=== PATIENT | female | born 1990 | race African-American/Black ===

== ENCOUNTER 2024-02-05 02:37 | Inpatient (IN) | payer MEDICAID ==
[~2024-02-05] VITALS: Ht 177.8 cm; Wt 64.0 kg
[2024-02-05 02:55] VITALS: O2SAT 98
[2024-02-05 03:10] LABS: BASOPHILS % (AUTO) 0.5 % (0.0-2.0); EOSINOPHILS % (AUTO) 5.4 % (1.0-6.0); HEMATOCRIT 38.6 % (36-46); HEMOGLOBIN 12.5 g/dL (12.0-16.0); LYMPHOCYTES # (AUTO) 1.3 K/uL (1.0-4.8); MEAN CORPUSCULAR HEMOGLOBIN 30.3 pg (26.0-34.0); MEAN CORPUSCULAR HGB CONC 32.4 G/dL (31.0-37.0); MEAN CORPUSCULAR VOLUME 93 fL (80-100); MONOCYTES # (AUTO) 0.4 K/uL (0.1-1.0); MONOCYTES % (AUTO) 6.4 % (2.0-9.0); NEUTROPHILS % (AUTO) 66.7 % (40.0-70.0); PLATELET COUNT (AUTO) 230 K/uL (150-450); RED BLOOD CELL COUNT(AUTO) 4.13 MIL/uL (4.00-5.20); RED CELL DISTRIBUTION WIDTH 13.7 % (11.5-14.5)
[2024-02-05 03:26] LABS: ANION GAP 12 mmol/L (8-16); CALCIUM, TOTAL 8.8 mg/dL (8.8-10.5); CARBON DIOXIDE 26 mmol/L (22-29); CHLORIDE 106 mmol/L (98-107); CREATININE 0.78 mg/dL (0.60-1.30); GLOMERULAR FILTR. RATE CALC > 60 mL/min (>60); GLUCOSE,RANDOM 83 mg/dL (70-110); POTASSIUM 3.4 mmol/L (3.5-5.1); SODIUM SERUM 144 mmol/L (136-145); UREA NITROGEN, BLOOD 13 mg/dL (7-18)
[2024-02-05 03:37] LABS: ALCOHOL, BLOOD (SERUM) 183 mg/dL (0-10)
[2024-02-05 04:43] LABS: COVID AG,FIA SOURCE NASAL SWAB
[2024-02-05] MEDS: LORazepam 2 MG TABLET PO ONE (05:04)
[2024-02-05] MEDS: HALOPERIDOL 5 MG TABLET PO ONE (05:04)
[2024-02-05] MEDS: POTASSIUM CHLORIDE 20 MEQ ER TABLET PO ONE (05:05)
[2024-02-05 05:18] LABS: PH,URINE DRUG SCREEN 6.5 (5.0-8.0)
[2024-02-05 05:22] LABS: SARS-COV2 (COVID) ANTIGEN,FIA Negative (Negative)
[2024-02-05 05:26] LABS: ALCOHOL, URINE DRUG SCREEN POSITIVE (NEGATIVE); AMPHET/METH SCREEN,URINE NEGATIVE (NEGATIVE); BARBITURATE SCREEN, URINE NEGATIVE (NEGATIVE); BENZODIAZEPINES SCREEN,URINE NEGATIVE (NEGATIVE); CANNABINOID SCREEN,URINE NEGATIVE (NEGATIVE); COCAINE SCREEN,URINE NEGATIVE (NEGATIVE); METHADONE SCREEN, URINE NEGATIVE (NEGATIVE); OPIATE SCREEN,URINE NEGATIVE (NEGATIVE); PHENCYCLIDINE SCREEN,URINE NEGATIVE (NEGATIVE)
[2024-02-05] MEDS ORDERED: LORazepam 2 MG TABLET PO PRN (05:30)
[2024-02-05] MEDS ORDERED: ZOLPIDEM TARTRATE 10 MG TABLET PO PRN (05:30)
[2024-02-05] MEDS ORDERED: HALOPERIDOL 5 MG TABLET PO PRN (05:30)
[2024-02-05 05:46] LABS: APPEARANCE,URINE CLEAR (CLEAR); BILIRUBIN,URINE NEGATIVE (NEGATIVE); COLOR,URINE LIGHT YELLOW (YELLOW); GLUCOSE, URINE (UA) NEGATIVE (NEGATIVE); KETONES,URINE NEGATIVE (NEGATIVE); LEUKOCYTE ESTERASE ,URINE NEGATIVE (NEGATIVE); NITRATE,URINE NEGATIVE (NEGATIVE); OCCULT BLOOD,URINE NEGATIVE (NEGATIVE); PH,URINE 6.5 (5.0-8.0); UROBILINOGEN,URINE <=1.0 mg/dL (<=1.0)
[2024-02-05 05:51] LABS: PROTEIN,URINE NEGATIVE (NEGATIVE)
[2024-02-05 10:15] VITALS: BP 107/68; PULSE 78; RESP 16; TEMP 98.2; O2SAT 98
[2024-02-05] MEDS ORDERED: DOCUSATE SODIUM 100 MG CAPSULE PO PRN (10:15)
[2024-02-05] MEDS ORDERED: MAGNESIUM HYDROXIDE SUSPENSION 30 ML UDCUP PO PRN (10:15)
[2024-02-05] MEDS ORDERED: MAG HYDROX/ALUMINUM HYD/SIMETH ES 30 ML SUSPENSION UDCUP PO PRN (10:15)
[2024-02-05] MEDS ORDERED: PETROLATUM,WHITE 28 GM JELLY TP PRN (10:15)
[2024-02-05] MEDS ORDERED: CloNIDine HCL 0.1 MG TABLET PO PRN (10:15)
[2024-02-05] MEDS ORDERED: LOPERAMIDE HCL 2 MG CAPSULE PO PRN (10:15)
[2024-02-05] MEDS ORDERED: GuaiFENesin/D-METHORPHAN [SUGAR-FREE] 200-20MG/10 ML SYRUP UDCUP PO PRN (10:15)
[2024-02-05] MEDS ORDERED: ONDANSETRON 4 MG TABLET PO PRN (10:15)
[2024-02-05] MEDS ORDERED: NICOTINE 14 MG/24 HOUR PATCH TD PRN (10:15)
[2024-02-05] MEDS ORDERED: ALBUTEROL SULFATE HFA 90 MCG/PUFF 8 GM INHALER IH PRN (10:15)
[2024-02-05 23:58] VITALS: BP 110/68; PULSE 72; RESP 16; TEMP 98; O2SAT 99
[2024-02-06 08:35] VITALS: BP 113/64; PULSE 82; RESP 17; TEMP 98.1; O2SAT 97
[2024-02-06 08:52] LABS: HEMOGLOBIN A1C 5.5 % (3.8-5.6)
[2024-02-06 09:12] LABS: CHOL/HDL RATIO 1.7 (3.9-5.7); POTASSIUM 3.4 mmol/L (3.5-5.1); THYROID STIMULATING HORMONE 2.63 uIU/mL (0.36-3.74)
[2024-02-06 09:13] LABS: APPEARANCE,URINE CLEAR (CLEAR); BILIRUBIN,URINE NEGATIVE (NEGATIVE); COLOR,URINE LIGHT YELLOW (YELLOW); GLUCOSE, URINE (UA) NEGATIVE (NEGATIVE); KETONES,URINE NEGATIVE (NEGATIVE); LEUKOCYTE ESTERASE ,URINE NEGATIVE (NEGATIVE); NITRATE,URINE NEGATIVE (NEGATIVE); OCCULT BLOOD,URINE NEGATIVE (NEGATIVE); PH,URINE 5.5 (5.0-8.0); PH,URINE DRUG SCREEN 5.5 (5.0-8.0); PROTEIN,URINE NEGATIVE (NEGATIVE); SPECIFIC GRAVITIY, URINE 1.011 (1.003-1.030); UROBILINOGEN,URINE <=1.0 mg/dL (<=1.0)
[2024-02-06 09:23] LABS: ALCOHOL, URINE DRUG SCREEN NEGATIVE (NEGATIVE); AMPHET/METH SCREEN,URINE NEGATIVE (NEGATIVE); BARBITURATE SCREEN, URINE NEGATIVE (NEGATIVE); BENZODIAZEPINES SCREEN,URINE NEGATIVE (NEGATIVE); CANNABINOID SCREEN,URINE NEGATIVE (NEGATIVE); COCAINE SCREEN,URINE NEGATIVE (NEGATIVE); METHADONE SCREEN, URINE NEGATIVE (NEGATIVE); OPIATE SCREEN,URINE NEGATIVE (NEGATIVE); PHENCYCLIDINE SCREEN,URINE NEGATIVE (NEGATIVE)
[2024-02-06 20:55] VITALS: BP 118/73; PULSE 66; RESP 18; TEMP 97.6; O2SAT 97
[2024-02-07 02:26] VITALS: BP 116/72; PULSE 87; RESP 18; TEMP 98; O2SAT 98
[2024-02-07] MEDS: IBUPROFEN 400 MG TABLET PO PRN (02:26)
[2024-02-07 02:27] VITALS: BP 116/72; PULSE 86; RESP 18; TEMP 98; O2SAT 98
[2024-02-07 03:26] VITALS: RESP 18; TEMP 98.1; O2SAT 98
[2024-02-07 08:42] VITALS: BP 112/71; PULSE 71; RESP 16; TEMP 97; O2SAT 97
[2024-02-07 20:14] VITALS: BP 105/65; PULSE 76; RESP 16; TEMP 96.5; O2SAT 99
[2024-02-07] MEDS: ACETAMINOPHEN 325 MG TABLET PO PRN (22:09)
[2024-02-08 08:21] VITALS: BP 107/65; PULSE 81; RESP 16; TEMP 97.8; O2SAT 99
[2024-02-09 03:06] LABS: HEPATITIS C AB (EIA) Non Reactive (Non Reactive)
== END 2024-02-08 13:48 | disposition home or self-care (01) | DRG 750 ==
LOC: EMS 02:37 → B3A 09:19
PROVIDERS: ADMIT Psychiatry & Neurology Psychiatry; ATTEND Psychiatry & Neurology Psychiatry
PROC: GZHZZZZ Group Psychotherapy (ICD-10-PCS; principal; 2024-02-06)
PROC: GZ56ZZZ Individual Psychotherapy, Supportive (ICD-10-PCS; 2024-02-06)
DX: F20.0 Paranoid schizophrenia (principal); F33.2 Major depressive disorder, recurrent severe without psychotic features; R45.851 Suicidal ideations; E87.6 Hypokalemia; F10.129 Alcohol abuse with intoxication, unspecified; Y90.6 Blood alcohol level of 120-199 mg/100 ml; I10 Essential (primary) hypertension; F41.9 Anxiety disorder, unspecified; Z20.822 Contact with and (suspected) exposure to COVID-19; G47.00 Insomnia, unspecified; Z79.899 Other long term (current) drug therapy
CPT/HCPCS: 80048; 80061; 80307; 81003; 83036; 84132; 84443; 84703; 85025; 86803; 87340; 99285; G0480